=== PATIENT | female | born 1970 | race Caucasian/White ===

== ENCOUNTER 2018-08-31 14:54 | Emergency (ER) | payer OTHER ==
[2018-08-31] MEDS: DEXAMETHASONE 10 MG/ML 1 ML INJ IM (16:00)
== END 2018-08-31 17:15 | disposition home or self-care (01) ==
LOC: FTE 14:54
DX: J01.00 Acute maxillary sinusitis, unspecified (principal); I10 Essential (primary) hypertension; E11.9 Type 2 diabetes mellitus without complications
CPT/HCPCS: 70450; 70486; 96372; 99285-25